=== PATIENT | male | born 1950 | race Caucasian/White ===

== ENCOUNTER 2019-03-10 15:08 | Inpatient (IN) | payer MEDICARE ==
[~2019-03-10] VITALS: Ht 172.7 cm; Wt 93.4 kg
--- NOTE | 2019-03-10 15:21 | NUR ---
PT IS IN ROOM #1A. SITTER AT HE BEDSIDE. NO S/S OF DISTRESS AT THIS TIME. PT IS RESTING IN BED COMFORTABLY.
[2019-03-10] MEDS ORDERED: FURO40TA5 PO (15:24)
[2019-03-10] MEDS ORDERED: RISP2TAB23 PO (15:24)
[2019-03-10] MEDS ORDERED: LOSA25TA27 PO (15:24)
[2019-03-10] MEDS ORDERED: PANT40TA4 PO (15:24)
[2019-03-10] MEDS ORDERED: HALO5TAB PO (15:24)
[2019-03-10] MEDS ORDERED: FERR325T28 PO (15:24)
--- NOTE | 2019-03-10 16:09 | NUR ---
pt was evaluated by dr orozco. pt was transfered to [facility] room #137b. report was given to rn mhu.
[2019-03-10] MEDS ORDERED: ACETAMINOPHEN ES 500 MG TABLET ONE (16:39)
[2019-03-10 16:45] VITALS: BP 137/67
[2019-03-10] MEDS ORDERED: ACETAMINOPHEN ES 500 MG TABLET PO ONE (16:45)
[2019-03-10] MEDS ORDERED: BLOOD SUGAR DIAGNOSTIC 1 EACH STRIP VI ONE (17:30)
[2019-03-10] MEDS ORDERED: LORAZEPAM 0.5 MG TABLET PO PRN (17:30)
[2019-03-10] MEDS ORDERED: TEMAZEPAM 7.5 MG CAPSULE PO PRN (17:30)
[2019-03-10] MEDS ORDERED: MAG HYDROX/AL HYDROX/SIMETH 30 ML LIQUID UDC PO PRN (17:30)
[2019-03-10] MEDS ORDERED: MAGNESIUM HYDROXIDE 30 ML LIQUID UDC PO PRN (17:30)
[2019-03-10 20:00] VITALS: BP 105/53
--- NOTE | 2019-03-10 22:00 | NUR ---
received to care, at start of shift, lying in bed, pleasant upon approach. remains on contact isolation to r/o skin infection. pt remains compliant. as of 2199, he appears to be asleep. no distress noted. will continue to monitor closely.
[2019-03-11] MEDS: ACETAMINOPHEN 325 MG TABLET PO PRN ×3 (00:32→20:57)
--- NOTE | 2019-03-11 00:32 | NUR ---
PRN tylenol giiven for lower back pain.
--- NOTE | 2019-03-11 01:00 | NUR ---
appears to be asleep. no dsitress noted.
--- NOTE | 2019-03-11 06:00 | NUR ---
slept 7 hours, total. continues to sleep. no distress noted.
[2019-03-11] MEDS: PANTOPRAZOLE SODIUM 40 MG TABLET.DR PO SCH (06:13)
[2019-03-11 07:55] VITALS: BP 136/72
[2019-03-11] MEDS: FERROUS SULFATE 325 MG TABEC PO SCH ×3 (09:18→16:44)
[2019-03-11] MEDS: FUROSEMIDE 40 MG TABLET PO SCH (09:18)
[2019-03-11] MEDS: LOSARTAN POTASSIUM 25 MG TABLET PO SCH (09:19)
[2019-03-11] MEDS ORDERED: diphenhydrAMINE 25 MG CAP PO PRN (11:45)
--- NOTE | 2019-03-11 15:03 | NUR ---
Initial Discharge Note: Patient currently resides at a [facility] facility [address] [place] [address] ([phone]). Patient would like to go back to his current facility where he has been residing for 25 years. SW will continue to work with patient, family, and MD to ensure a safe and proper discharge plan.
--- NOTE | 2019-03-11 15:03 | NUR ---
Coordination of Care: Broadcast Field Supervisor spoke with the planer tailer, Radha at the [facility] ([phone]) who stated that patient will be able to return upon discharge. Broadcast Field Supervisor also left a voicemail for the corridor redevelopment manager, Julia Pizarro ([phone]) and awaiting a call back.
--- NOTE | 2019-03-11 15:43 | NUR ---
Firearms Report (DOJ): Professor Of Biological Sciences completed and submitted a DPJ firearms report for 5150 for danger to himself certification. A copy of report has been placed in patient chart.
[2019-03-11 20:00] VITALS: BP 108/50
[2019-03-11] MEDS: risperiDONE 2 MG TABLET PO SCH (20:47)
[2019-03-11] MEDS ORDERED: risperiDONE 1 MG TABLET PO SCH (21:00)
--- NOTE | 2019-03-12 06:00 | NUR ---
slept 6.5 hours, total. continues to sleep. no distress noted.
[2019-03-12] MEDS: PANTOPRAZOLE SODIUM 40 MG TABLET.DR PO SCH (06:32)
[2019-03-12 07:30] VITALS: BP 101/54
[2019-03-12 07:42] LABS: MAGNESIUM 2.3 mg/dL (1.8-2.4); POTASSIUM 4.1 mmol/L (3.5-5.1)
[2019-03-12] MEDS: HALOPERIDOL 5 MG TABLET PO SCH ×3 (08:24→18:43)
[2019-03-12] MEDS: FERROUS SULFATE 325 MG TABEC PO SCH ×4 (08:24→18:43)
[2019-03-12] MEDS: LOSARTAN POTASSIUM 25 MG TABLET PO SCH (08:24)
[2019-03-12] MEDS: BENZTROPINE MESYLATE 0.5 MG TABLET PO SCH ×3 (08:24→18:43)
[2019-03-12] MEDS: risperiDONE 2 MG TABLET PO SCH ×2 (08:25→20:37)
[2019-03-12] MEDS: FUROSEMIDE 40 MG TABLET PO SCH (08:25)
[2019-03-12 08:44] LABS: BASOPHILS # (AUTO) 0.1 K/uL (0.0-8.0); WHITE BLOOD COUNT (AUTO) 5.8 K/uL (3.6-10.2)
[2019-03-12 09:03] LABS: THYROID STIMULATING HORMONE 3.43 mIU/mL (0.358-3.740)
[2019-03-12 09:10] LABS: BASOPHILS % (AUTO) 1.7 % (0.0-2.0); EOSINOPHILS # (AUTO) 0.1 K/uL (0.0-0.7); EOSINOPHILS % (AUTO) 2.4 % (0.0-7.0); HEMATOCRIT 24.5 % (36.7-47.1); LYMPHOCYTES # (AUTO) 3.5 K/uL (20.0-40.0); MEAN CORPUSCULAR HEMOGLOBIN 14.4 uug (23.8-33.4); MEAN CORPUSCULAR HGB CONC 27 g/dL (32.5-36.3); MEAN CORPUSCULAR VOLUME 52.8 fL (73.0-96.2); MONOCYTES # (AUTO) 0.1 K/uL (2.0-10.0); MONOCYTES % (AUTO) 2.4 % (0.0-11.0); NEUTROPHILS # (AUTO) 1.9 K/uL (1.8-8.9); NEUTROPHILS % (AUTO) 33.5 % (38.5-71.5); PLATELET COUNT (AUTO) 351 K/uL (152-348)
[2019-03-12 09:30] LABS: HEMOGLOBIN 6.7 g/dL (12.5-16.3)
[2019-03-12 09:31] LABS: RED BLOOD CELL COUNT(AUTO) 4.64 MIL/uL (4.06-5.63)
[2019-03-12 09:41] LABS: BAND % (MANUAL) 1 % (0-10); BASOPHILS % (MANUAL) 1 % (0-2); EOSINOPHILS % (MANUAL) 7 % (0-8); LYMPHOCYTES % (MANUAL) 18 % (20-40); MONOCYTES % (MANUAL) 5 % (2-10); NEUTROPHILS % (MANUAL) 68 % (42-75)
--- NOTE | 2019-03-12 12:14 | NUR ---
SPOKE WITH DR. CARBONE REGARDING ABNORMAL LABS, HEMOGLOBIN AT 6.1 AND HEMATOCRIT AT22.7, DR. CARBONE ACKNOWLEDGE
--- NOTE | 2019-03-12 13:25 | NUR ---
Family Contact: retail worker spoke with patient's sister, Marquita ([phone]) who stated that the patient is not adopted and was raised by his parents. Marquita also stated that the patient has been using a fake name for about 30 years of his life, Aries Morton Junior. Marquita stated that the patient has a long history of psychiatric hospitalizations and has been going to [facility] and gets Haldol inj once a month. Marquita also stated that the patient is non-complaint with his medications at the [facility] and [facility] which he has been residing at for over 25 years.
[2019-03-12 16:00] VITALS: BP 104/46
[2019-03-12] MEDS: ACETAMINOPHEN 325 MG TABLET PO PRN (18:43)
[2019-03-12 20:16] VITALS: BP_SYST 119; BP_SYST 99; BP_DIAS 58; BP_DIAS 61
[2019-03-13] MEDS: ACETAMINOPHEN 325 MG TABLET PO PRN ×4 (03:59→23:51)
--- NOTE | 2019-03-13 05:36 | NUR ---
Patient slept 6.15 hours. Up sitting on edge of the bed writing. Shower given early this am. Awaiting a urine sample. No issues or acute distress. Patient has been compliant with medications for this shift.
[2019-03-13] MEDS: PANTOPRAZOLE SODIUM 40 MG TABLET.DR PO SCH (06:13)
[2019-03-13 07:30] VITALS: BP 128/64
[2019-03-13] MEDS: FUROSEMIDE 40 MG TABLET PO SCH (08:00)
[2019-03-13] MEDS: LOSARTAN POTASSIUM 25 MG TABLET PO SCH (08:00)
[2019-03-13] MEDS: FERROUS SULFATE 325 MG TABEC PO SCH ×3 (08:00→16:04)
[2019-03-13] MEDS: BENZTROPINE MESYLATE 0.5 MG TABLET PO SCH ×2 (08:00→16:04)
[2019-03-13] MEDS: risperiDONE 2 MG TABLET PO SCH ×2 (08:00→20:05)
[2019-03-13] MEDS: HALOPERIDOL 5 MG TABLET PO SCH ×2 (08:00→16:04)
[2019-03-13 08:56] LABS: HEMATOCRIT 25.4 % (36.7-47.1); MEAN CORPUSCULAR HEMOGLOBIN 14.7 uug (23.8-33.4); MEAN CORPUSCULAR HGB CONC 27 g/dL (32.5-36.3); MEAN CORPUSCULAR VOLUME 53.7 fL (73.0-96.2); PLATELET COUNT (AUTO) 324 K/uL (152-348); RED BLOOD CELL COUNT(AUTO) 4.74 MIL/uL (4.06-5.63); WHITE BLOOD COUNT (AUTO) 6.7 K/uL (3.6-10.2)
[2019-03-13 08:58] LABS: CREATININE 1.1 mg/dL (0.6-1.3); MAGNESIUM 2.4 mg/dL (1.8-2.4); POTASSIUM 3.7 mmol/L (3.5-5.1)
[2019-03-13 09:58] LABS: EOSINOPHILS % (MANUAL) 3 % (0-8); LYMPHOCYTES % (MANUAL) 21 % (20-40); MONOCYTES % (MANUAL) 4 % (2-10); NEUTROPHILS % (MANUAL) 72 % (42-75)
[2019-03-13 11:42] LABS: *BILIRUBIN,URIN NEGATIVE (NEGATIVE); *BLOOD, URINE NEGATIVE (NEGATIVE); *CLARITY,URINE CLEAR (CLEAR); *COLOR,URINE YELLOW (YELLOW); *KETONES,URINE NEGATIVE (NEGATIVE); *UROBILINOGEN,URINE 0.2 E.U./dl (NORMAL); LEUKOCYTE ESTERASE ,URINE NEGATIVE (NEGATIVE); NITRITE, URINE NEGATIVE (NEGATIVE); UGLUCOSE NEGATIVE (NEGATIVE)
--- NOTE | 2019-03-13 14:12 | NUR ---
SPOKE WITH DR. CARBONE REGARDING ABNORMAL LABS, HEMOGLOBIN AT 7, with previous result at 6.7, will continue monitor
[2019-03-13 15:36] VITALS: BP 106/56
[2019-03-13 20:20] VITALS: BP 124/55
[2019-03-14] MEDS: PANTOPRAZOLE SODIUM 40 MG TABLET.DR PO SCH ×2 (06:02→22:30)
[2019-03-14 07:28] LABS: MAGNESIUM 2.1 mg/dL (1.8-2.4); PHOSPHOROUS 3.1 mg/dL (2.5-4.9); POTASSIUM 3.9 mmol/L (3.5-5.1)
[2019-03-14 07:48] VITALS: BP 121/71
[2019-03-14 08:03] LABS: HEMATOCRIT 23.6 % (36.7-47.1); MEAN CORPUSCULAR HEMOGLOBIN 14.8 uug (23.8-33.4); MEAN CORPUSCULAR HGB CONC 28 g/dL (32.5-36.3); MEAN CORPUSCULAR VOLUME 53.5 fL (73.0-96.2); PLATELET COUNT (AUTO) 333 K/uL (152-348); RED BLOOD CELL COUNT(AUTO) 4.41 MIL/uL (4.06-5.63); WHITE BLOOD COUNT (AUTO) 5.1 K/uL (3.6-10.2)
[2019-03-14 08:16] LABS: HEMOGLOBIN 6.5 g/dL (12.5-16.3)
[2019-03-14] MEDS: FUROSEMIDE 40 MG TABLET PO SCH (08:33)
[2019-03-14] MEDS: FERROUS SULFATE 325 MG TABEC PO SCH ×3 (08:33→17:12)
[2019-03-14] MEDS: BENZTROPINE MESYLATE 0.5 MG TABLET PO SCH ×2 (08:33→17:12)
[2019-03-14] MEDS: risperiDONE 2 MG TABLET PO SCH ×2 (08:33→20:12)
[2019-03-14] MEDS: LOSARTAN POTASSIUM 25 MG TABLET PO SCH (08:33)
[2019-03-14] MEDS: HALOPERIDOL 5 MG TABLET PO SCH ×2 (08:33→17:12)
[2019-03-14 08:35] LABS: EOSINOPHILS % (MANUAL) 6 % (0-8); LYMPHOCYTES % (MANUAL) 23 % (20-40); MONOCYTES % (MANUAL) 4 % (2-10); NEUTROPHILS % (MANUAL) 67 % (42-75)
[2019-03-14] MEDS: ACETAMINOPHEN 325 MG TABLET PO PRN ×2 (09:19→15:56)
--- NOTE | 2019-03-14 11:20 | NUR ---
Pt's Hg is 6.5. Patient is resting in bed, awake, denies distress. Tracey Khan is aware. Discussed the lab value and possible transfusion. Pt is indecisive, says he does need it. Teaching provided. Patient cannot give an answer now, states he will think about it.
[2019-03-14] MEDS: DOCUSATE SODIUM 100 MG CAPSULE PO SCH ×2 (14:46→20:12)
[2019-03-14 15:12] LABS: *OCCULT BLOOD STOOL NEGATIVE (NEGATIVE)
--- NOTE | 2019-03-14 15:39 | NUR ---
Individual Therapy Note: odd bundle worker met with patient and assessed the patient's level of suicidality. Patient shared that he is no longer feeling suicidal or depressed. Patient shared that he would like to return back to his board and care facility and would like to go when he is feeling a little more stable. odd bundle worker provided support and active listening for the patient and reassurance regarding his feelings.
[2019-03-14 16:44] VITALS: BP 101/54
[2019-03-14 20:01] VITALS: BP 101/50
[2019-03-15] MEDS: PANTOPRAZOLE SODIUM 40 MG TABLET.DR PO SCH (06:42)
[2019-03-15] MEDS: risperiDONE 2 MG TABLET PO SCH ×3 (08:13→20:59)
[2019-03-15] MEDS: HALOPERIDOL 5 MG TABLET PO SCH ×3 (08:13→16:34)
[2019-03-15] MEDS: DOCUSATE SODIUM 100 MG CAPSULE PO SCH ×3 (08:13→20:59)
[2019-03-15] MEDS: FERROUS SULFATE 325 MG TABEC PO SCH ×4 (08:13→16:34)
[2019-03-15] MEDS: FUROSEMIDE 40 MG TABLET PO SCH ×2 (08:13→08:20)
[2019-03-15] MEDS: BENZTROPINE MESYLATE 0.5 MG TABLET PO SCH ×3 (08:13→16:34)
[2019-03-15] MEDS: LOSARTAN POTASSIUM 25 MG TABLET PO SCH ×2 (08:13→08:20)
[2019-03-15 08:43] LABS: MEAN CORPUSCULAR HEMOGLOBIN 15.2 uug (23.8-33.4); MEAN CORPUSCULAR HGB CONC 28 g/dL (32.5-36.3); MEAN CORPUSCULAR VOLUME 54.7 fL (73.0-96.2); PLATELET COUNT (AUTO) 318 K/uL (152-348); RED BLOOD CELL COUNT(AUTO) 4.37 MIL/uL (4.06-5.63); WHITE BLOOD COUNT (AUTO) 6.2 K/uL (3.6-10.2)
[2019-03-15 08:54] LABS: HEMOGLOBIN 6.7 g/dL (12.5-16.3)
[2019-03-15 08:55] LABS: HEMATOCRIT 23.9 % (36.7-47.1)
[2019-03-15 10:14] LABS: BASOPHILS % (MANUAL) 1 % (0-2); EOSINOPHILS % (MANUAL) 5 % (0-8); LYMPHOCYTES % (MANUAL) 22 % (20-40); MONOCYTES % (MANUAL) 7 % (2-10); NEUTROPHILS % (MANUAL) 65 % (42-75)
[2019-03-15 10:21] VITALS: BP 128/68
[2019-03-15 16:33] VITALS: BP 124/52
[2019-03-15 20:06] VITALS: BP 98/53
[2019-03-15] MEDS: ACETAMINOPHEN 325 MG TABLET PO PRN (20:59)
[2019-03-16] MEDS: ACETAMINOPHEN 325 MG TABLET PO PRN ×2 (02:38→10:17)
[2019-03-16] MEDS: PANTOPRAZOLE SODIUM 40 MG TABLET.DR PO SCH (06:32)
[2019-03-16 07:30] VITALS: BP 137/72
[2019-03-16] MEDS: risperiDONE 2 MG TABLET PO SCH ×2 (08:22→20:19)
[2019-03-16] MEDS: LOSARTAN POTASSIUM 25 MG TABLET PO SCH (08:22)
[2019-03-16] MEDS: HALOPERIDOL 5 MG TABLET PO SCH ×2 (08:22→16:51)
[2019-03-16] MEDS: BENZTROPINE MESYLATE 0.5 MG TABLET PO SCH ×2 (08:23→16:51)
[2019-03-16] MEDS: DOCUSATE SODIUM 100 MG CAPSULE PO SCH ×2 (08:23→20:19)
[2019-03-16] MEDS: FERROUS SULFATE 325 MG TABEC PO SCH ×3 (08:23→16:51)
[2019-03-16] MEDS: FUROSEMIDE 40 MG TABLET PO SCH (08:23)
[2019-03-16 16:00] VITALS: BP 118/70
[2019-03-16 20:44] VITALS: BP 145/73
--- NOTE | 2019-03-16 22:00 | NUR ---
received to care, mis kim his room, pleasant upon approach. remains compliant with medications , and staff direction, but remains isolative, in his room.. as of 2199, he appears to be asleep. no distress noted. will continue to monitor closely.
--- NOTE | 2019-03-17 06:00 | NUR ---
slept 9.25 hours, total. continues to sleep. no distress noted.
[2019-03-17] MEDS: PANTOPRAZOLE SODIUM 40 MG TABLET.DR PO SCH (06:05)
[2019-03-17 07:30] VITALS: BP 98/38
[2019-03-17] MEDS: LOSARTAN POTASSIUM 25 MG TABLET PO SCH (09:00)
[2019-03-17] MEDS: DOCUSATE SODIUM 100 MG CAPSULE PO SCH ×2 (09:08→20:00)
[2019-03-17] MEDS: HALOPERIDOL 5 MG TABLET PO SCH ×2 (09:08→16:23)
[2019-03-17] MEDS: risperiDONE 2 MG TABLET PO SCH ×2 (09:08→20:00)
[2019-03-17] MEDS: FUROSEMIDE 40 MG TABLET PO SCH (09:08)
[2019-03-17] MEDS: FERROUS SULFATE 325 MG TABEC PO SCH ×3 (09:08→16:23)
[2019-03-17] MEDS: BENZTROPINE MESYLATE 0.5 MG TABLET PO SCH ×2 (09:11→16:23)
[2019-03-17] MEDS: ACETAMINOPHEN 325 MG TABLET PO PRN ×2 (09:19→16:40)
[2019-03-17 16:00] VITALS: BP 90/42
[2019-03-17 20:00] VITALS: BP 128/63
--- NOTE | 2019-03-17 22:00 | NUR ---
received to care, pleasant upon approach, more visible on unit, but remains isolative. compliant with medications and staff direction. as of 2199, he appears to be asleep. no distress noted. will continue to monitor closely.
[2019-03-18] MEDS: ACETAMINOPHEN 325 MG TABLET PO PRN (00:26)
--- NOTE | 2019-03-18 06:00 | NUR ---
slept 5 hours, total. continues to sleep. no distress noted.
[2019-03-18] MEDS: PANTOPRAZOLE SODIUM 40 MG TABLET.DR PO SCH (06:01)
[2019-03-18 07:30] VITALS: BP 140/84
[2019-03-18 08:16] LABS: MEAN CORPUSCULAR HEMOGLOBIN 15.8 uug (23.8-33.4); MEAN CORPUSCULAR HGB CONC 28 g/dL (32.5-36.3); MEAN CORPUSCULAR VOLUME 56.4 fL (73.0-96.2); PLATELET COUNT (AUTO) 341 K/uL (152-348)
[2019-03-18 08:17] LABS: HEMATOCRIT 27.1 % (36.7-47.1); HEMOGLOBIN 7.6 g/dL (12.5-16.3)
[2019-03-18] MEDS: FUROSEMIDE 40 MG TABLET PO SCH (08:50)
[2019-03-18] MEDS: FERROUS SULFATE 325 MG TABEC PO SCH ×3 (08:51→16:44)
[2019-03-18] MEDS: BENZTROPINE MESYLATE 0.5 MG TABLET PO SCH ×2 (08:51→16:44)
[2019-03-18] MEDS: risperiDONE 2 MG TABLET PO SCH ×2 (08:51→20:08)
[2019-03-18] MEDS: LOSARTAN POTASSIUM 25 MG TABLET PO SCH (08:51)
[2019-03-18] MEDS: HALOPERIDOL 5 MG TABLET PO SCH ×2 (08:51→16:44)
[2019-03-18] MEDS: DOCUSATE SODIUM 100 MG CAPSULE PO SCH ×2 (08:51→20:08)
[2019-03-18 09:33] LABS: BAND % (MANUAL) 1 % (0-10); BASOPHILS % (MANUAL) 1 % (0-2); EOSINOPHILS % (MANUAL) 11 % (0-8); LYMPHOCYTES % (MANUAL) 18 % (20-40); MONOCYTES % (MANUAL) 5 % (2-10); NEUTROPHILS % (MANUAL) 64 % (42-75)
[2019-03-18 16:29] VITALS: BP 102/60
[2019-03-18 20:11] VITALS: BP 107/50
[2019-03-19] MEDS: PANTOPRAZOLE SODIUM 40 MG TABLET.DR PO SCH (06:48)
[2019-03-19 07:53] LABS: HEMATOCRIT 29.2 % (36.7-47.1); HEMOGLOBIN 8.1 g/dL (12.5-16.3); MEAN CORPUSCULAR HEMOGLOBIN 15.8 uug (23.8-33.4); MEAN CORPUSCULAR HGB CONC 28 g/dL (32.5-36.3); PLATELET COUNT (AUTO) 319 K/uL (152-348); RED BLOOD CELL COUNT(AUTO) 5.12 MIL/uL (4.06-5.63)
[2019-03-19 07:59] VITALS: BP 133/68
[2019-03-19] MEDS: FERROUS SULFATE 325 MG TABEC PO SCH ×3 (08:36→16:49)
[2019-03-19] MEDS: HALOPERIDOL 5 MG TABLET PO SCH ×2 (08:36→16:48)
[2019-03-19] MEDS: risperiDONE 2 MG TABLET PO SCH ×2 (08:36→20:02)
[2019-03-19] MEDS: DOCUSATE SODIUM 100 MG CAPSULE PO SCH ×2 (08:36→20:02)
[2019-03-19] MEDS: FUROSEMIDE 40 MG TABLET PO SCH (08:36)
[2019-03-19] MEDS: BENZTROPINE MESYLATE 0.5 MG TABLET PO SCH ×2 (08:36→16:48)
[2019-03-19] MEDS: LOSARTAN POTASSIUM 25 MG TABLET PO SCH (08:37)
[2019-03-19 09:17] LABS: BASOPHILS % (MANUAL) 2 % (0-2); EOSINOPHILS % (MANUAL) 14 % (0-8); LYMPHOCYTES % (MANUAL) 22 % (20-40); MONOCYTES % (MANUAL) 6 % (2-10); NEUTROPHILS % (MANUAL) 55 % (42-75)
--- NOTE | 2019-03-19 09:55 | NUR ---
Coordination of Care: storage brine worker spoke with Dean, house worker at patient's [facility] (ph: [phone]) regarding patient's plan for discharge for 03/21/19. This parts data writer faxed Dean patient's clinicals such as History and Physical, Progress Notes, and Medication List to (fax: [phone]). Dean gave patient's pharmacy information [facility] (ph: [phone]) (fax: [phone]). Patient has a primary care physician that makes home visits Dr. Tin Vaughn and has a follow up appointment scheduled on 03/26/2019.
[2019-03-19] MEDS: ACETAMINOPHEN 325 MG TABLET PO PRN ×2 (12:49→19:58)
[2019-03-19 17:02] VITALS: BP 100/52
[2019-03-19 19:30] VITALS: BP 109/56
[2019-03-20] MEDS: PANTOPRAZOLE SODIUM 40 MG TABLET.DR PO SCH (06:12)
[2019-03-20 07:22] LABS: BASOPHILS # (AUTO) 0.1 K/uL (0.0-8.0); BASOPHILS % (AUTO) 1.3 % (0.0-2.0); EOSINOPHILS # (AUTO) 0.6 K/uL (0.0-0.7); EOSINOPHILS % (AUTO) 8.8 % (0.0-7.0); HEMATOCRIT 27.7 % (36.7-47.1); HEMOGLOBIN 7.8 g/dL (12.5-16.3); LYMPHOCYTES % (AUTO) 31.5 % (20.5-51.5); MEAN CORPUSCULAR HGB CONC 28 g/dL (32.5-36.3); MONOCYTES # (AUTO) 0.5 K/uL (2.0-10.0); MONOCYTES % (AUTO) 7.6 % (0.0-11.0); NEUTROPHILS # (AUTO) 3.3 K/uL (1.8-8.9); NEUTROPHILS % (AUTO) 50.8 % (38.5-71.5); PLATELET COUNT (AUTO) 374 K/uL (152-348); RED BLOOD CELL COUNT(AUTO) 4.86 MIL/uL (4.06-5.63); WHITE BLOOD COUNT (AUTO) 6.4 K/uL (3.6-10.2)
[2019-03-20 07:30] VITALS: BP 98/68
[2019-03-20 08:39] LABS: EOSINOPHILS % (MANUAL) 14 % (0-8); LYMPHOCYTES % (MANUAL) 22 % (20-40); MONOCYTES % (MANUAL) 5 % (2-10); NEUTROPHILS % (MANUAL) 59 % (42-75)
[2019-03-20] MEDS: FERROUS SULFATE 325 MG TABEC PO SCH ×3 (09:01→16:02)
[2019-03-20] MEDS: BENZTROPINE MESYLATE 0.5 MG TABLET PO SCH ×2 (09:01→16:02)
[2019-03-20] MEDS: risperiDONE 2 MG TABLET PO SCH ×2 (09:01→20:01)
[2019-03-20] MEDS: DOCUSATE SODIUM 100 MG CAPSULE PO SCH ×2 (09:01→20:01)
[2019-03-20] MEDS: FUROSEMIDE 40 MG TABLET PO SCH (09:02)
[2019-03-20] MEDS: HALOPERIDOL 5 MG TABLET PO SCH ×2 (09:02→16:02)
[2019-03-20] MEDS: LOSARTAN POTASSIUM 25 MG TABLET PO SCH (09:03)
[2019-03-20] MEDS: ACETAMINOPHEN 325 MG TABLET PO PRN ×2 (09:37→19:53)
--- NOTE | 2019-03-20 10:00 | NUR ---
Pt is sleeping in bed intermittently. Orientedx3. C/O of lower backpains and medicated with Tylenol 650mg po. Pt is cooperative and ate well for breakfast.
--- NOTE | 2019-03-20 11:00 | NUR ---
Pt is ambulating well up and down the tom.
[2019-03-20 15:16] VITALS: BP 117/51
[2019-03-20 17:17] LABS: *BILIRUBIN,URIN NEGATIVE (NEGATIVE); *CLARITY,URINE CLEAR (CLEAR); *COLOR,URINE YELLOW (YELLOW); *KETONES,URINE NEGATIVE (NEGATIVE); *UROBILINOGEN,URINE 0.2 E.U./dl (NORMAL); LEUKOCYTE ESTERASE ,URINE NEGATIVE (NEGATIVE); NITRITE, URINE NEGATIVE (NEGATIVE); PH,URINE 6.5 (5.0-8.0); UGLUCOSE NEGATIVE (NEGATIVE)
[2019-03-20 17:26] LABS: *BLOOD, URINE TRACE (NEGATIVE); RBC,URINE 0-3 /HPF (0-3)
[2019-03-20 17:27] LABS: SQUAMOUS EPITHELIAL CELL,UR FEW /HPF (NONE SEEN); WBC,URINE NONE SEEN /HPF (0-3)
--- NOTE | 2019-03-20 18:10 | NUR ---
GPS: remain calm in his room calm and cooperative, seen by dr. mccormick and DILEEP baumann, collected urine , patient compliant
[2019-03-20 20:10] VITALS: BP 124/58
[2019-03-21] MEDS: PANTOPRAZOLE SODIUM 40 MG TABLET.DR PO SCH (06:14)
[2019-03-21 07:08] LABS: HEMATOCRIT 27.4 % (36.7-47.1); HEMOGLOBIN 7.8 g/dL (12.5-16.3)
[2019-03-21 07:30] VITALS: BP 104/59
--- NOTE | 2019-03-21 08:04 | NUR ---
Discharge Note: Patient will be discharged back to his [facility] [address], [place] [address] ([phone]). The patient will be provided transportation via Taxi at 12:30pm and given a taxi voucher. Dean ([phone]) at the facility is aware of patients arrival. Patients sisterMarquita ([phone]) is aware and agreeable with discharge plans. Patient is also aware and agreeable with discharge plans. Patient presents with normal mood and euthymic affect. Patient denies suicidal or homicidal ideation. Patient will be following up at the facility with his primary care physician Dr. Tin Vaughn [address] [place] [address] ([phone]) and has a home visit appointment scheduled on March 26, 2019. Patient will be following up with his current psychiatrist Dr. Keyur Gonzalez at [place] [id number] [facility] [address], [place] [address] ([phone]) and has an appointment scheduled on March 27, 2019 at 10:00AM. Patient was also provided with outpatient mental health resources to [facility] , and the National Suicide Prevention Lifeline .
[2019-03-21] MEDS: FERROUS SULFATE 325 MG TABEC PO SCH ×2 (08:49→12:54)
[2019-03-21] MEDS: HALOPERIDOL 5 MG TABLET PO SCH (08:49)
[2019-03-21] MEDS: BENZTROPINE MESYLATE 0.5 MG TABLET PO SCH (08:49)
[2019-03-21] MEDS: risperiDONE 2 MG TABLET PO SCH (08:49)
[2019-03-21] MEDS: DOCUSATE SODIUM 100 MG CAPSULE PO SCH (08:49)
[2019-03-21 08:55] VITALS: BP 122/61
[2019-03-21] MEDS: FUROSEMIDE 40 MG TABLET PO SCH (08:55)
[2019-03-21] MEDS: LOSARTAN POTASSIUM 25 MG TABLET PO SCH (08:55)
[2019-03-21] MEDS: ACETAMINOPHEN 325 MG TABLET PO PRN (09:00)
--- NOTE | 2019-03-21 12:18 | NUR ---
Gps/Wastewater Treatment Operator- Discharged planning in progress. Patient was well informed Patient has a bag of belongings w/c was left/kept outsiide on the patio , not aware or reason why, and who brought the stuff outside., . Patient's belongings will all be given back as he leave the hospital.
--- NOTE | 2019-03-21 13:10 | NUR ---
Gps/Media Relations Intern- Reviewed discharged instructions, medications/prescription, safety emphasized, follow up with Primary Doctor as well as Psychiatrist as recommended.Patient verbalized understanding. Noted patient signed discharged instructions but signed different name( Aries Morton Jr.) insisted that that is his name.Requesting all his belongings, but unable to give his dirtry clothes to wear, will give belongings back to patient, but will offer clean clothes from the donation.
--- NOTE | 2019-03-21 13:35 | NUR ---
Gps/Book Mender-Alert oriented x3 ,[facility] arranged to transport patient to his B&C.
--- NOTE | 2019-03-21 14:02 | NUR ---
Gps/Instrumentation Tech- Discharged to [facility] , via [employer], all belongings given back to patient, including his stuff that was on the patio. Patient in good spirit, no complaints noted.
== END 2019-03-21 14:00 | DRG 885 ==
LOC: ER 15:12 → GPS 16:22
PROVIDERS: ADMIT Psychiatry & Neurology Psychiatry; ATTEND Student in an Organized Health Care Education/Training Program
PROC: 0HBRXZZ Excision of Toe Nail, External Approach (ICD-10-PCS; principal; 2019-03-12)
DX: F20.0 Paranoid schizophrenia (principal); I44.0 Atrioventricular block, first degree; K21.9 Gastro-esophageal reflux disease without esophagitis; I10 Essential (primary) hypertension; Z86.19 Personal history of other infectious and parasitic diseases; L90.9 Atrophic disorder of skin, unspecified; M20.42 Other hammer toe(s) (acquired), left foot; M20.41 Other hammer toe(s) (acquired), right foot; B35.1 Tinea unguium; D50.9 Iron deficiency anemia, unspecified; B86 Scabies; Z79.899 Other long term (current) drug therapy; Z91.19 Patient's noncompliance with other medical treatment and regimen
CPT/HCPCS: 36415; 70030-TC; 71045; 83735; 84100; 84443; 85018; 85025; 87086; 93005; A4663; A9150